=== PATIENT | male | born 1990 ===

== ENCOUNTER 2017-07-27 18:31 | Emergency (ER) | payer SELFPAY ==
[2017-07-27 18:44] VITALS: BP 126/84; PULSE 68; RESP 18; TEMP 98.1; O2SAT 100
--- NOTE | 2017-07-27 19:41 | C.PDOC ---
History Of Present Illness 07/27/2017 Karl Sofia is a 26 year old male, who presents to the ED complaining of right foot pain for the past two weeks s/p trauma. Patient reports the pain is worse when ambulating and has become more persistent recently. Patient denies any weakness, numbness, or other complaints. Time Seen by Provider: 07/27/17 19:14 Chief Complaint (Nursing): Lower Extremity Problem/Injury History Per: Patient History/Exam Limitations: no limitations Onset/Duration Of Symptoms: Gradual (2 weeks), Persistent Current Symptoms Are (Timing): Worse Severity: Mild - Ankle/Foot Currently Unable To: Bear Weight Past Medical History Reviewed: Historical Data, Nursing Documentation, Vital Signs Vital Signs: Last Vital Signs Temp 98.1 F 07/27/17 18:41 Pulse 68 07/27/17 18:41 Resp 18 07/27/17 18:41 BP 126/84 07/27/17 18:41 Pulse Ox 100 07/27/17 19:58 Family History: States: Unknown Family Hx - Social History Hx Alcohol Use: No Hx Substance Use: No - Immunization History Hx Tetanus Toxoid Vaccination: No Hx Influenza Vaccination: No Hx Pneumococcal Vaccination: No Review Of Systems Constitutional: Negative for: Fever Gastrointestinal: Negative for: Vomiting Musculoskeletal: Positive for: Foot Pain (right foot) Neurological: Negative for: Weakness, Numbness Physical Exam - Physical Exam Appears: Well, Non-toxic, No Acute Distress Skin: Normal Color, Warm, Dry Head: Atraumatic, Normacephalic Extremity: Normal ROM, Tenderness (mild tenderness on palpation on dorsal right foot. greater base of second mtp), No Calf Tenderness Pulses: Left Dorsalis Pedis: Normal, Right Dorsalis Pedis: Normal Neurological/Psych: Oriented x3, Normal Speech, Normal Motor, Normal Sensation, Normal Reflexes ED Course And Treatment O2 Sat by Pulse Oximetry: 100 (room air) Pulse Ox Interpretation: Normal Medical Decision Making Medical Decision Makin07/27/2017 Impression: 26 y/o male with mild tenderness on palpation of dorsal right foot caused by trauma two weeks ago. Plan: -- Motrin -- Reassess and disposition Progress Notes: Disposition Counseled Patient/Family Regarding: Diagnosis, Rx Given - Disposition Referrals: Podiatry Clinic [Outside] Disposition: HOME/ ROUTINE Disposition Time: 19:38 Condition: STABLE Additional Instructions: Take medications as directed Follow up in podiatry Return to ER if worse Prescriptions: Ibuprofen [Motrin] 600 mg PO Q6H #30 tab Instructions: Arthralgia (ED) Forms: [employer] (Slovak) Print Language: KHMER - Clinical Impression Clinical Impression: Foot pain, right - Scribe Statement The provider has reviewed the documentation as recorded by the Scribe 07/27/2017 Scribe Attestation: Yu Townsend MD Scribe Attestation: All medical record entries made by the Scribe were at my direction and personally dictated by me. I have reviewed the chart and agree that the record accurately reflects my personal performance of the history, physical exam, medical decision making, and the department course for this patient. I have also personally directed, reviewed, and agree with the discharge instructions and disposition.
== END 2017-07-27 19:56 | disposition home or self-care (01) ==
LOC: C.ER 18:31
DX: M79.671 Pain in right foot (principal)

== ENCOUNTER 2017-08-09 19:49 | Emergency (ER) | payer SELFPAY ==
[2017-08-09 20:03] VITALS: RESP 20
[2017-08-09] MEDS ORDERED: cefTRIAXone (Rocephin) 250 mg Inj IM STA (20:24)
--- NOTE | 2017-08-09 20:44 | C.PDOC ---
History Of Present Illness Patient is a 26 y/o male who presents to the ED with complaints of foot pain for 2 weeks, right middle finger pain for 1 week, and dysuria intermittently for 2 months. Patient states foot pain is localized to his heel and inferior aspect. Patient also admits to being sexually active, but unsure of possible STD , noting burning sensation to have worsened within the last few days. Denies any penile discharge or injury to his fingers, but notes subjective swelling to affected finger. Time Seen by Provider: 08/09/17 20:20 Chief Complaint (Nursing): Upper Extremity Problem/Injury History Per: Patient History/Exam Limitations: no limitations Onset/Duration Of Symptoms: Days (foot pain for 2 weeks, right middle finger pain for 1 week, dysuria for 2 months. ) Current Symptoms Are (Timing): Still Present Recent travel outside of the [place]: No Past Medical History Reviewed: Historical Data, Nursing Documentation, Vital Signs Vital Signs: Last Vital Signs Temp 98.3 F 08/09/17 21:24 Pulse 82 08/09/17 21:24 Resp 20 08/09/17 21:24 BP 112/68 08/09/17 21:24 Pulse Ox 98 08/09/17 21:24 - Medical History PMH: No Chronic Diseases Surgical History: No Surg Hx Family History: States: Unknown Family Hx - Social History Hx Alcohol Use: No Hx Substance Use: No - Immunization History Hx Tetanus Toxoid Vaccination: No Hx Influenza Vaccination: No Hx Pneumococcal Vaccination: No Review Of Systems Genitourinary: Positive for: Dysuria. Negative for: Penile Discharge Musculoskeletal: Positive for: Hand Pain (right middle finger), Foot Pain ( inferior aspect and calcaneus area of right foot) Physical Exam - Physical Exam Appears: Well, Non-toxic, No Acute Distress Skin: Normal Color, Warm, Dry Head: Atraumatic, Normacephalic Eye(s): bilateral: Normal Inspection, EOMI Oral Mucosa: Moist Neck: Normal ROM Chest: Symmetrical Cardiovascular: Rhythm Regular, No Murmur Respiratory: Normal Breath Sounds, No Rales, No Rhonchi, No Wheezing Extremity: Tenderness (mild tenderness to PIP of right third finger), Capillary Refill (normal ), Swelling (mild swelling to PIP of right third finger) Neurological/Psych: Oriented x3, Normal Speech, Other (no other focal deficits. ) ED Course And Treatment O2 Sat by Pulse Oximetry: 100 (room air. ) Pulse Ox Interpretation: Normal Medical Decision Making Medical Decision Making: Plan: Zithromax and Rocephin administered; urine culture, UA, XR Hand, and GC culture ordered. Disposition Counseled Patient/Family Regarding: Diagnosis, Need For Followup, Rx Given - Disposition Referrals: Clinic,Med Surg [Primary Care Provider] - Disposition: HOME/ ROUTINE Disposition Time: 21:18 Condition: STABLE Additional Instructions: Vaya a triplett mdico o la clnica en 2-5 mujica sin falta, para mas evaluacin. Byram los medicamentos devin indicado. Volver a la tian de emergencia en cualquier momento si los sntomas persisten o empeoran. Prescriptions: Doxycycline Hyclate 100 mg PO BID #14 capsule Instructions: Dysuria (GEN) Forms: [facility] (Spanish) Print Language: GEORGIAN - POA Present On Arrival: None - Clinical Impression Clinical Impression: UTI (urinary tract infection), Exposure to STD, Foot pain, right, Finger pain, right
[2017-08-09 20:54] LABS: RBC URINE 2 /hpf (0-3); URINE BACTERIA FEW (<OCC); URINE BILIRUBIN NEGATIVE (NEGATIVE); URINE BLOOD NEGATIVE (NEGATIVE); URINE COLOR Amber (YELLOW); URINE GLUCOSE (UA) NORMAL (Normal); URINE KETONE NEGATIVE (NEGATIVE); URINE LEUKOCYTE ESTERASE 2+ Leu/uL (Negative); URINE PROTEIN 1+ mg/dL (NEGATIVE); WBC URINE 42 /hpf (0-5)
[2017-08-09 21:25] VITALS: BP 112/68; PULSE 82; TEMP 98.3
--- NOTE | 2017-08-10 10:18 | RAD ---
Right hand three views History: Pain. Comparison: None available. Findings: Rounded ossific density seen distal to the fibular styloid with adjacent productive change of the fibular styloid. This is of uncertain clinical etiology and may represent the sequelae of chronic trauma. Clinical correlation to site of pain. Narrowing of the radiocarpal joint space. Remainder of the visualized osseous structures are grossly preserved. Impression: Rounded ossific density seen distal to the fibular styloid with adjacent productive change of the fibular styloid. This is of uncertain clinical etiology and may represent the sequelae of chronic trauma. Clinical correlation to site of pain. Narrowing of the radiocarpal joint space. If pain persists, consider MRI.
[2017-08-10 10:41] VITALS: O2SAT 100
== END 2017-08-09 21:24 | disposition home or self-care (01) ==
LOC: C.ER 19:49 → SUPCPDRO 19:49 → C.ER 21:24
DX: M79.671 Pain in right foot (principal); N39.0 Urinary tract infection, site not specified; Z20.2 Contact with and (suspected) exposure to infections with a predominantly sexual mode of transmission; M79.644 Pain in right finger(s)
CPT/HCPCS: 73130; 81001; 87086; 87491; 87591; 96372; 99284; J0696

== ENCOUNTER 2017-08-12 02:08 | Emergency (ER) | payer SELFPAY ==
[2017-08-12 02:25] VITALS: O2SAT 100
[2017-08-12] MEDS ORDERED: Dexamethasone 4 mg/1 ml IM STA (02:51)
[2017-08-12] MEDS ORDERED: Dexamethasone 4 mg/1 ml ONE (03:08)
--- NOTE | 2017-08-12 03:42 | C.PDOC ---
History Of Present Illness 26 year old male presents to the ED with complaints of swelling to the right hand, left knee, and right foot intermittently for a month and a half. Patient notes he has been seen in the ED previously with similar complaints and notes minimal relief with medications. 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 Patient denies weakness, numbness, fever, or other complaints at this time. Time Seen by Provider: 08/12/17 02:25 Chief Complaint (Nursing): Finger,Hand,&Wrist History Per: Patient History/Exam Limitations: no limitations Onset/Duration Of Symptoms: Intermittent Episodes (1.5 months ) Current Symptoms Are (Timing): Still Present Pain Scale Rating Of: 0 Exacerbating Factor(s): Nothing Recent travel outside of the [place]: No Additional History Per: Prior Records Past Medical History Reviewed: Historical Data, Nursing Documentation, Vital Signs Vital Signs: Last Vital Signs Temp 98.8 F 08/12/17 03:50 Pulse 82 08/12/17 03:50 Resp 18 08/12/17 03:50 BP 119/79 08/12/17 03:50 Pulse Ox 100 08/12/17 03:59 Family History: States: Unknown Family Hx - Social History Hx Alcohol Use: No Hx Substance Use: No - Immunization History Hx Tetanus Toxoid Vaccination: No Hx Influenza Vaccination: No Hx Pneumococcal Vaccination: No Review Of Systems Constitutional: Negative for: Fever, Chills Cardiovascular: Negative for: Chest Pain, Palpitations Respiratory: Negative for: Cough, Shortness of Breath Gastrointestinal: Negative for: Nausea, Vomiting Musculoskeletal: Positive for: Other (swelling to right hand, left knee, and right foot. ) Neurological: Negative for: Weakness, Numbness Physical Exam - Physical Exam Appears: Non-toxic, No Acute Distress Skin: Warm, Dry Head: Atraumatic, Normacephalic Eye(s): bilateral: Normal Inspection Oral Mucosa: Moist Neck: Supple Chest: Symmetrical, No Deformity Cardiovascular: Rhythm Regular, No Murmur Respiratory: Normal Breath Sounds, No Rales, No Rhonchi, No Wheezing Extremity: No Normal ROM (decreased ROM at the PIP joint of third finger of the right hand ), No Tenderness, No Pedal Edema, No Calf Tenderness, Capillary Refill (good capillary refill, less than two seconds ), No Deformity, Swelling ( swelling to the right third finger, dosrum of right foot, and left knee. ) Pulses: Left Radial: Normal, Right Radial: Normal, Left Dorsalis Pedis: Normal, Right Dorsalis Pedis: Normal Neurological/Psych: Oriented x3, Normal Speech, Normal Motor, Normal Sensation Gait: Steady ED Course And Treatment O2 Sat by Pulse Oximetry: 100 (room air ) Progress Note: Patient was given Decadron and Toradol. As per patient's request , splint was applied by cryptographic technician and checked by me. Medical Decision Making Medical Decision Making: Differential: Arthritis vs. gout. There is no evidence of cellulitis. Old records were reviewed. Patient was seen twice in ED for similar symptoms, and 08/03. Disposition - Disposition Referrals: [facility] [Outside] Disposition: HOME/ ROUTINE Disposition Time: 03:41 Condition: GOOD Additional Instructions: Follow up with the medical doctor within 1-2 days. Return if worsened. Prescriptions: Ibuprofen [Motrin] 600 mg PO TID #21 tab predniSONE [Prednisone] 10 mg PO BID #10 tab Instructions: Gout (ED), Rheumatoid Arthritis (ED) Forms: [employer] (North Korean), Work Excuse Print Language: UPPER SORBIAN - Clinical Impression Clinical Impression: Foot pain, right, Finger pain, right, Arthritis - PA / [employer] / Resident Statement MD/DO has reviewed & agrees with the documentation as recorded. - Scribe Statement The provider has reviewed the documentation as recorded by the Scribjorge Zamora All medical record entries made by the Wojciechibjorge were at my direction and personally dictated by me. I have reviewed the chart and agree that the record accurately reflects my personal performance of the history, physical exam, medical decision making, and the department course for this patient. I have also personally directed, reviewed, and agree with the discharge instructions and disposition.
--- NOTE | 2017-08-12 03:42 | C.PDOC ---
Time Seen by Provider: 08/12/17 02:25 Chief Complaint (Nursing): Finger,Hand,&Wrist Past Medical History Vital Signs: Last Vital Signs Temp 98.4 F 08/12/17 02:18 Pulse 105 H 08/12/17 02:18 Resp 20 08/12/17 02:18 BP 133/81 08/12/17 02:18 Pulse Ox 100 08/12/17 02:18 Family History: States: Unknown Family Hx - Social History Hx Alcohol Use: No Hx Substance Use: No - Immunization History Hx Tetanus Toxoid Vaccination: No Hx Influenza Vaccination: No Hx Pneumococcal Vaccination: No ED Course And Treatment O2 Sat by Pulse Oximetry: 100 Disposition - Disposition Referrals: [facility] [Outside] Disposition: HOME/ ROUTINE Disposition Time: 03:41 Condition: GOOD Additional Instructions: Follow up with the medical doctor within 1-2 days. Return if worsened. Instructions: Gout (ED), Rheumatoid Arthritis (ED) Forms: [employer] (Latvian) Print Language: RWANDAN
[2017-08-12 04:17] VITALS: BP 119/79; PULSE 82; RESP 18; TEMP 98.8
== END 2017-08-12 03:55 | disposition home or self-care (01) ==
LOC: C.ER 02:08
DX: M79.671 Pain in right foot (principal); M79.644 Pain in right finger(s); M19.90 Unspecified osteoarthritis, unspecified site
CPT/HCPCS: 96372; 99284; J1100; J1885

== ENCOUNTER 2017-08-18 05:58 | Emergency (ER) | payer MEDICAID, OTHER ==
--- NOTE | 2017-08-18 07:23 | C.PDOC ---
History Of Present Illness 26 y/o male presents to emergency department with complaints of bilateral foot pain, bilateral knee pain, and right 3rd digit pain. Patient has been seen multiple times at this and other ERs for similar complaints. Patient recently diagnosed with Chlamydia, treated with IM Rocephin and PO azithromycin, and also given doxycycline prescription. Patient states he cannot afford his pain medication. He denies any new symptoms, fever/chills, CP, SOB, abdominal pain, rash, bug bites (ticks, etc). Time Seen by Provider: 08/18/17 07:09 Chief Complaint (Nursing): Pain, Chronic History Per: Patient History/Exam Limitations: no limitations Onset/Duration Of Symptoms: Persistent Current Symptoms Are (Timing): Still Present Severity: Mild Reports Recently: Seen In ED, Treated By A Physician Recent travel outside of the [place]: No Past Medical History Reviewed: Historical Data, Nursing Documentation, Vital Signs Vital Signs: Last Vital Signs Temp 98.3 F 08/18/17 07:50 Pulse 65 08/18/17 07:50 Resp 18 08/18/17 07:50 BP 143/85 08/18/17 07:50 Pulse Ox 99 08/18/17 10:51 - Medical History PMH: No Chronic Diseases Family History: States: No Known Family Hx - Social History Hx Alcohol Use: No Hx Substance Use: No - Immunization History Hx Tetanus Toxoid Vaccination: No Hx Influenza Vaccination: No Hx Pneumococcal Vaccination: No Review Of Systems Except As Marked, All Systems Reviewed And Found Negative. Constitutional: Negative for: Fever, Chills Cardiovascular: Negative for: Chest Pain Respiratory: Negative for: Cough, Shortness of Breath, Wheezing Gastrointestinal: Negative for: Nausea, Vomiting Genitourinary: Negative for: Penile Discharge, Rash, Penile Pain Musculoskeletal: Positive for: Hand Pain (R 3rd digitr), Leg Pain (bilateral knees), Foot Pain (bilateral) Skin: Negative for: Rash Neurological: Negative for: Weakness, Numbness, Headache, Dizziness Physical Exam - Physical Exam Appears: Well, Non-toxic, No Acute Distress Skin: Normal Color, Warm, Dry, No Rash Head: Normacephalic Oral Mucosa: Moist Neck: Normal, Normal ROM, Supple Chest: Symmetrical Cardiovascular: Rhythm Regular Respiratory: Normal Breath Sounds, No Rales, No Rhonchi, No Wheezing Gastrointestinal/Abdominal: Normal Exam, Bowel Sounds, Soft, No Tenderness Back: Normal Inspection Extremity: Normal ROM, Capillary Refill (< 2 sec all digits), No Deformity, No Swelling, Other (Mildly tender to palpation at bilateral knees and bilateral feet. No deformity or swelling. Right 3rd digit in splint, mildly tender to palpation, no swelling or erythema. ) Extremity: Bilateral: Normal Color And Temperature, Normal ROM Pulses: Left Radial: Normal, Right Radial: Normal Neurological/Psych: Oriented x3, Normal Sensation Gait: Steady ED Course And Treatment O2 Sat by Pulse Oximetry: 99 (RA) Pulse Ox Interpretation: Normal Progress Note: Patient given Toradol IM, and prior ED visits reviewed. He has already been treated for chlamydia/gonorrhea and given Rx for doxycycline. Patient instructed to apply for [facility] [place] today, and go downstairs after discharge and make medical clinic appointment. He understads he needs further medical workup. He was instructed to return to ED if symptoms worsen. Reevaluation Time: 07:35 Reassessment Condition: Improved (Patient states pain has improved, feels better.) Medical Decision Making Medical Decision Making: differential diagnoses considered: gonococcal arthritis, viral syndrome, gout, pseudogout, rheumatoid arthritis, SLE, lyme disease, thyroid disease Disposition Counseled Patient/Family Regarding: Diagnosis, Need For Followup, Rx Given - Disposition Referrals: [facility] [Outside] Disposition: HOME/ ROUTINE Disposition Time: 07:35 Condition: STABLE Additional Instructions: FOLLOW UP IN THE MEDICAL CLINIC IN 1-2 DAYS USE MEDICATIONS DIRECTED RETURN TO EMERGENCY ROOM IF SYMPTOMS WORSEN Prescriptions: Naproxen 375 mg PO BID PRN #25 tablet PRN Reason: pain Instructions: Arthralgia (ED) Forms: [employer] (Mongolian) Print Language: GHANAIAN - POA Present On Arrival: None - Clinical Impression Clinical Impression: Arthralgia - Scribe Statement The provider has reviewed the documentation as recorded by the Esa Mata All medical record entries made by the Esa were at my direction and personally dictated by me. I have reviewed the chart and agree that the record accurately reflects my personal performance of the history, physical exam, medical decision making, and the department course for this patient. I have also personally directed, reviewed, and agree with the discharge instructions and disposition.
[2017-08-18 07:57] VITALS: BP 143/85; PULSE 65; RESP 18; TEMP 98.3
[2017-08-18 10:51] VITALS: O2SAT 99
== END 2017-08-18 07:50 | disposition home or self-care (01) ==
LOC: C.ER 05:58
DX: M25.572 Pain in left ankle and joints of left foot (principal); M25.571 Pain in right ankle and joints of right foot
CPT/HCPCS: 96372; 99285; J1885

== ENCOUNTER 2017-08-19 08:35 | Emergency (ER) | payer MEDICAID, OTHER ==
[2017-08-19 08:38] VITALS: BMI 22.5
[2017-08-19 08:42] VITALS: BP 131/86; RESP 18; TEMP 98.2
--- NOTE | 2017-08-19 09:37 | C.PDOC ---
History Of Present Illness 26 y/o male brought to ED via trans with complaints of recurrent chronic generalized myalgias and arthralgia. Patient was seen on 08/18 for same symptoms and given Naprosyn but patient states " I didn't have money to fill it but i will later today". Patient states he was here applying [facility] and "I figured I'D come by again to get same shot". Patient reports no new symptoms since prior visit. VIA TRANS CO RECUR CHRONIC GEN MYALGIAS AND ARTHRALGIA. SEEN 08/18 FOR SAME, GIVEN RX NAPROSYN BUT "I DIDNT HAVE MONEY TO FILL IT BUT I WILL LATER TODAY". PS WAS HERE APPLYING FOR [facility] "AND I FIGURED I'D COME BY AGAIN TO GET SAME SHOT ". NO NEW SX SINCE PRIOR VISIT. EXAM NAD NONTOXIC NEG Time Seen by Provider: 08/19/17 09:19 Chief Complaint (Nursing): Pain, Chronic History Per: Patient History/Exam Limitations: no limitations Onset/Duration Of Symptoms: Days Current Symptoms Are (Timing): Still Present Past Medical History Reviewed: Historical Data, Nursing Documentation, Vital Signs Vital Signs: Last Vital Signs Temp 98.2 F 08/19/17 08:39 Pulse 75 08/19/17 09:43 Resp 18 08/19/17 09:43 BP 131/86 08/19/17 08:39 Pulse Ox 100 08/19/17 11:42 Surgical History: No Surg Hx Family History: States: No Known Family Hx - Social History Hx Alcohol Use: No Hx Substance Use: No - Immunization History Hx Tetanus Toxoid Vaccination: No Hx Influenza Vaccination: No Hx Pneumococcal Vaccination: No Review Of Systems Except As Marked, All Systems Reviewed And Found Negative. Musculoskeletal: Positive for: Other (Myalgias and arthralgias) Skin: Negative for: Rash Neurological: Negative for: Weakness, Numbness Physical Exam - Physical Exam Appears: Non-toxic, No Acute Distress Skin: Warm, Dry, No Rash Head: Normacephalic Eye(s): bilateral: Normal Inspection Oral Mucosa: Moist Neck: Normal ROM, Supple Chest: Symmetrical Back: Normal Inspection, No CVA Tenderness, No Paraspinal Tenderness Extremity: Normal ROM, Capillary Refill (<2 seconds) Extremity: Bilateral: Atraumatic Neurological/Psych: Oriented x3, Normal Motor, Normal Sensation ED Course And Treatment O2 Sat by Pulse Oximetry: 100 (RA) Pulse Ox Interpretation: Normal Progress - Re-Evaluation Re-evaluation Note: 08/19/17 09:36 ADVISED NEED FOR CLINIC FU. PENDING APPOINTMENT 08/25 - Data Reviewed Data Reviewed: Old records Disposition Counseled Patient/Family Regarding: Diagnosis, Need For Followup - Disposition Referrals: [facility] [Outside] [facility] [Outside] Disposition: HOME/ ROUTINE Disposition Time: 09:37 Condition: IMPROVED Instructions: Chronic Pain (ED) Forms: [employer] (Yoruba) Print Language: MICRONESIAN - Clinical Impression Clinical Impression: Chronic pain - Scribe Statement The provider has reviewed the documentation as recorded by the Wojciechibjorge Shine All medical record entries made by the Wojciechibjorge were at my direction and personally dictated by me. I have reviewed the chart and agree that the record accurately reflects my personal performance of the history, physical exam, medical decision making, and the department course for this patient. I have also personally directed, reviewed, and agree with the discharge instructions and disposition.
[2017-08-19 09:43] VITALS: PULSE 75
[2017-08-19 11:40] VITALS: O2SAT 100
== END 2017-08-19 09:44 | disposition home or self-care (01) ==
LOC: C.ER 08:35
DX: G89.29 Other chronic pain (principal)
CPT/HCPCS: 96372; 99285; J1885

== ENCOUNTER 2018-12-19 07:04 | Emergency (ER) | payer SELFPAY ==
[2018-12-19 07:05] VITALS: BMI 22.5
[2018-12-19] MEDS ORDERED: cefTRIAXone 250 MG, Lidocaine Hydrochloride 1% 1 ML IM ONE (07:29)
--- NOTE | 2018-12-19 07:32 | C.PDOC ---
History Of Present Illness 28 year old male presents to the ED for evaluation of penile discharge s/p unprotected sex 1 week ago. The patient reports white penile discharge. Denies testicular pain, fever, chills, nausea, vomiting, and any other associated symptoms. Time Seen by Provider: 12/19/18 07:22 Chief Complaint (Nursing): Male Genitourinary History Per: Patient History/Exam Limitations: no limitations Onset/Duration Of Symptoms: Days (x1 week) Current Symptoms Are (Timing): Still Present Associated Symptoms: denies: Fever, Chills Recent travel outside of the [place]: No Past Medical History Reviewed: Historical Data, Nursing Documentation, Vital Signs Family History: States: Unknown Family Hx - Social History Hx Alcohol Use: No Hx Substance Use: No - Immunization History Hx Tetanus Toxoid Vaccination: No Hx Influenza Vaccination: No Hx Pneumococcal Vaccination: No Review Of Systems Constitutional: Negative for: Fever, Chills Gastrointestinal: Negative for: Nausea, Vomiting Genitourinary: Positive for: Penile Discharge (white. ). Negative for: Other ((-) testicular pain.) Physical Exam - Physical Exam Appears: Well, No Acute Distress Skin: Warm, Dry Head: Atraumatic, Normacephalic Eye(s): bilateral: Normal Inspection Oral Mucosa: Moist Neck: Normal ROM Chest: Symmetrical, No Deformity Cardiovascular: Rhythm Regular, No Murmur Respiratory: Normal Breath Sounds, No Rales, No Rhonchi, No Wheezing Gastrointestinal/Abdominal: Normal Exam, Soft, No Tenderness Male Genital: Other ((+) erythema of the gland of the penis.) Extremity: Normal ROM (x4) Neurological/Psych: Oriented x3, Normal Speech, Normal Cognition Medical Decision Making Medical Decision Making: Initial plan: -Chlamydia/GC RNA -Rocephin -Zithromax Progress/Update: Patient stable for discharge home. Prescribed Lotrimin Cream. Advised to return to the ED if symptoms worsen. Disposition Counseled Patient/Family Regarding: Diagnosis, Need For Followup, Rx Given - Disposition Disposition: HOME/ ROUTINE Disposition Time: 07:33 Condition: STABLE Prescriptions: Clotrimazole 1% Cream [Lotrimin 1% CREAM] 0 applic TOP DAILY #1 tube Instructions: Screening for Sexually Transmitted Infections Forms: [facility] (Croatian), General Discharge Instructions, Gen Discharge Inst Citizen Of [place] - POA Present On Arrival: None - Clinical Impression Clinical Impression: Exposure to STD - Scribe Statement The provider has reviewed the documentation as recorded by the Scribe (Deisy Lozada) Provider Attestation: All medical record entries made by the Scribe were at my direction and personally dictated by me. I have reviewed the chart and agree that the record accurately reflects my personal performance of the history, physical exam, medical decision making, and the department course for this patient. I have also personally directed, reviewed, and agree with the discharge instructions and disposition.
[2018-12-19 07:46] VITALS: BP 122/82; PULSE 77; RESP 16; TEMP 98.4; O2SAT 98
== END 2018-12-19 07:57 | disposition home or self-care (01) ==
LOC: C.ER 07:04
DX: Z20.2 Contact with and (suspected) exposure to infections with a predominantly sexual mode of transmission (principal)
CPT/HCPCS: 87491; 87591; 96372; 99284; J0696